=== PATIENT | male | born 1970 | race Caucasian/White ===

== ENCOUNTER 2024-02-11 13:29 | Inpatient (IN) | payer BC, MEDICAID ==
[~2024-02-11] VITALS: Ht 188 cm; Wt 111.1 kg
[2024-02-11 13:31] VITALS: O2SAT 98
[2024-02-11] MEDS: SODIUM CHLORIDE 0.9% 1,000 ML IV ONE (14:11)
[2024-02-11 16:16] LABS: CLARITY URINE CLEAR (CLEAR); COLOR URINE DARK YELLOW (YELLOW); GLUCOSE URINE NEGATIVE (NEGATIVE); KETONES URINE TRACE (NEGATIVE); LEUKOCYTE ESTERASE URINE NEGATIVE (NEGATIVE); NITRITE URINE NEGATIVE (NEGATIVE); OCCULT BLOOD URINE NEGATIVE (NEGATIVE); PROTEIN URINE TRACE (NEGATIVE); SPECIFIC GRAVITY URINE 1.033 (1.005-1.030)
[2024-02-11 16:30] LABS: *AMPHETAMINES SCREEN URINE NEGATIVE (NEGATIVE); *BARBITURATES SCREEN URINE NEGATIVE (NEGATIVE); *BENZODIAZEPINES SCREEN URINE NEGATIVE (NEGATIVE); *COCAINE SCREEN URINE NEGATIVE (NEGATIVE); CANNABINOID URINE SCREEN NEGATIVE (NEGATIVE); ECSTASY MDMA SCREEN URINE NEGATIVE (NEGATIVE); METHADONE URINE SCREEN NEGATIVE (NEGATIVE); OPIATES URINE SCREEN NEGATIVE (NEGATIVE); PHENCYCLIDINE URINE SCREEN NEGATIVE (NEGATIVE)
[2024-02-11 16:32] LABS: BASOPHILS % 0.6 % (0.0-2.0); EOSINOPHILS % 0.7 % (0.0-5.0); HEMATOCRIT. 46.4 % (42.0-52.0); HEMOGLOBIN. 15.6 g/dL (14.0-18.0); LYMPHOCYTES % 27.2 % (20.0-50.0); MEAN CORPUSCULAR HEMOGLOBIN 29.6 pg (28.0-32.0); MEAN CORPUSCULAR HGB CONC 33.7 g/dL (31.0-37.0); MEAN CORPUSCULAR VOLUME 87.7 fL (80.0-94.0); MEAN PLATELET VOLUME 8.5 fl (7.4-10.4); MONOCYTES % 8.3 % (2.0-8.0); NEUTROPHILS % 63.2 % (40.0-76.0); PLATELET 357 x1000/uL (130-400); RED BLOOD CELL COUNT 5.28 mill/uL (4.7-6.1); RED CELL DISTRIBUTION WIDTH 15.9 % (11.6-14.6); WHITE BLOOD COUNT 7.4 x1000/uL (4.5-11.0)
[2024-02-11 16:40] LABS: CHLORIDE 109 mEq/L (98-107); POTASSIUM 3.8 mEq/L (3.5-5.1); SODIUM 141 mEq/L (136-145)
[2024-02-11 16:41] LABS: CALCIUM 9.1 mg/dL (8.7-10.4); CARBON DIOXIDE 26 mEq/L (21-32)
[2024-02-11 16:42] LABS: INR 2.1; PROTHROMBIN TIME 22.6 sec (9.6-11.0)
[2024-02-11 16:46] LABS: CREATININE 0.9 mg/dL (0.6-1.3); GLUCOSE 86 mg/dL (70-105); UREA NITROGEN BLOOD 9 mg/dL (9-23)
[2024-02-11 16:47] LABS: ETHANOL BLOOD < 10 mg/dL (<10)
[2024-02-11 16:49] LABS: TROPONIN I HIGH SENSITIVITY < 4 ng/L (3.0-53)
[2024-02-11 16:52] LABS: THYROID STIMULATING HORMONE 2.31 uIU/mL (0.55-4.78)
[2024-02-11 16:53] LABS: RBC URINE NONE SEEN /hpf (0-2); SQUAMOUS EPITHELIAL CELL URINE RARE /lpf (RARE/1+); WBC URINE 0-2 /hpf (0-2)
[2024-02-11 16:54] LABS: BACTERIA URINE 1+
[2024-02-11] MEDS ORDERED: ASPIRIN 81MG TABLET PO SCH (19:30)
[2024-02-11] MEDS: ATORVASTATIN CALCIUM 40MG TABLET PO SCH (20:28)
[2024-02-11] MEDS: ASPIRIN 81MG TABLET PO SCH (20:30)
[2024-02-12 08:18] LABS: CHLORIDE 109 mEq/L (98-107); POTASSIUM 3.9 mEq/L (3.5-5.1); SODIUM 140 mEq/L (136-145)
[2024-02-12 08:19] LABS: CALCIUM 9.3 mg/dL (8.7-10.4); CARBON DIOXIDE 24 mEq/L (21-32)
[2024-02-12 08:24] LABS: CREATININE 0.8 mg/dL (0.6-1.3); GLUCOSE 80 mg/dL (70-105); UREA NITROGEN BLOOD 6 mg/dL (9-23)
[2024-02-12] MEDS ORDERED: CLONIDINE 0.1MG TABLET PO PRN (13:30)
[2024-02-12] MEDS ORDERED: IPRATROPIUM/ALBUTEROL 0.5-3(2.5)MG/3ML NEB HHN PRN (13:30)
[2024-02-12] MEDS ORDERED: ONDANSETRON HCL 4MG/2ML INJ IV PRN (13:30)
[2024-02-12 15:29] LABS: BASOPHILS % 0.8 % (0.0-2.0); EOSINOPHILS % 0.4 % (0.0-5.0); HEMATOCRIT. 47.5 % (42.0-52.0); MEAN CORPUSCULAR HEMOGLOBIN 29.6 pg (28.0-32.0); MEAN CORPUSCULAR HGB CONC 33.7 g/dL (31.0-37.0); MEAN CORPUSCULAR VOLUME 87.9 fL (80.0-94.0); MEAN PLATELET VOLUME 8.7 fl (7.4-10.4); MONOCYTES % 5.3 % (2.0-8.0); NEUTROPHILS % 70.5 % (40.0-76.0); PLATELET 359 x1000/uL (130-400); RED BLOOD CELL COUNT 5.41 mill/uL (4.7-6.1); RED CELL DISTRIBUTION WIDTH 15.2 % (11.6-14.6); WHITE BLOOD COUNT 7.6 x1000/uL (4.5-11.0)
[2024-02-12 15:36] LABS: D-DIMER < 0.19 mg/L FEU (<0.50); PROTHROMBIN TIME 20.9 sec (9.6-11.0)
[2024-02-12 15:41] LABS: CHLORIDE 107 mEq/L (98-107); POTASSIUM 3.6 mEq/L (3.5-5.1); SODIUM 138 mEq/L (136-145)
[2024-02-12 15:42] LABS: CALCIUM 9.1 mg/dL (8.7-10.4); CARBON DIOXIDE 24 mEq/L (21-32)
[2024-02-12 15:45] VITALS: BP 138/82; PULSE 76; PULSE 99; RESP 20; TEMP 36.89184; TEMP 36.9184; O2SAT 99
[2024-02-12 15:45] LABS: CREATINE KINASE MB FRACTION < 0.5 ng/mL (0.5-3.6)
[2024-02-12 15:47] LABS: AMMONIA 21 uMol/L (<32); CREATININE 0.9 mg/dL (0.6-1.3); GLUCOSE 140 mg/dL (70-105); TRIGLYCERIDE 99 mg/dL (0-150); UREA NITROGEN BLOOD 8 mg/dL (9-23)
[2024-02-12 15:48] LABS: LDL CHOLESTEROL 53 mg/dL (5-100)
[2024-02-12 15:49] LABS: ALANINE AMINOTRANSFERASE 21 IU/L (10-49); ALBUMIN 4.2 g/dL (3.2-4.8); ASPARTATE AMINOTRANSFERASE 16 IU/L (<34); BILIRUBIN DIRECT 0.3 mg/dL (<=3.0); CHOLESTEROL 94 mg/dL (<200); HDL CHOLESTEROL 28 mg/dL (>55); PHOSPHORUS 3.6 mg/dL (2.5-4.9); PROTEIN TOTAL 6.4 g/dL (6.0-8.3)
[2024-02-12 15:50] LABS: BILIRUBIN TOTAL 0.7 mg/dL (0.1-1.0); CREATINE KINASE 75 IU/L (46-171)
[2024-02-12 16:18] LABS: TROPONIN I HIGH SENSITIVITY < 4 ng/L (3.0-53)
[2024-02-12] MEDS ORDERED: METO-396 MT (18:13)
[2024-02-12] MEDS ORDERED: ATOR20TA65 MT (18:13)
[2024-02-12] MEDS ORDERED: DOCU-150 MT (18:13)
[2024-02-12] MEDS ORDERED: BACL-141 PO (18:13)
[2024-02-12] MEDS ORDERED: DANT50CA PO (18:18)
[2024-02-12] MEDS ORDERED: LEVE750T4 PO (18:18)
[2024-02-12] MEDS ORDERED: ESCI-7 PO (18:18)
[2024-02-12 20:00] VITALS: BP 120/87; PULSE 95; RESP 19; TEMP 36.61404; O2SAT 96
[2024-02-12] MEDS: LEVETIRACETAM 750 MG in SODIUM CHLORIDE 0.9% 100 ML IV SCH (20:46)
[2024-02-12] MEDS: LACOSAMIDE 100MG TABLET PO SCH (20:47)
[2024-02-12] MEDS: ACETAMINOPHEN 325MG TABLET PO PRN (20:58)
[2024-02-12] MEDS ORDERED: LEVETIRACETAM 1,000MG in NACL 100ML PREMIX IV SCH (21:00)
[2024-02-12 23:13] LABS: CREATINE KINASE MB FRACTION 0.6 ng/mL (0.5-3.6); TROPONIN I HIGH SENSITIVITY 6 ng/L (3.0-53)
[2024-02-12 23:14] LABS: CREATINE KINASE 79 IU/L (46-171)
[2024-02-13] VITALS: BP 119/77; PULSE 79; RESP 18; TEMP 36.72516; O2SAT 98
[2024-02-13 04:00] VITALS: BP 137/81; PULSE 74; RESP 18; TEMP 36.50292; O2SAT 95
[2024-02-13] MEDS: ACETAMINOPHEN 325MG TABLET PO PRN (05:36)
[2024-02-13 07:16] LABS: CARBON DIOXIDE 25 mEq/L (21-32); CHLORIDE 106 mEq/L (98-107); POTASSIUM 3.5 mEq/L (3.5-5.1); SODIUM 139 mEq/L (136-145)
[2024-02-13 07:18] LABS: CALCIUM 9.3 mg/dL (8.7-10.4)
[2024-02-13 07:22] LABS: CREATININE 0.8 mg/dL (0.6-1.3); GLUCOSE 107 mg/dL (70-105); UREA NITROGEN BLOOD 8 mg/dL (9-23)
[2024-02-13 07:46] LABS: BASOPHILS % 0.5 % (0.0-2.0); EOSINOPHILS % 0.6 % (0.0-5.0); HEMATOCRIT. 47.8 % (42.0-52.0); HEMOGLOBIN. 15.9 g/dL (14.0-18.0); LYMPHOCYTES % 26.9 % (20.0-50.0); MEAN CORPUSCULAR HEMOGLOBIN 29.2 pg (28.0-32.0); MEAN CORPUSCULAR HGB CONC 33.3 g/dL (31.0-37.0); MEAN CORPUSCULAR VOLUME 87.9 fL (80.0-94.0); MEAN PLATELET VOLUME 8.6 fl (7.4-10.4); MONOCYTES % 7.8 % (2.0-8.0); NEUTROPHILS % 64.2 % (40.0-76.0); PLATELET 351 x1000/uL (130-400); RED BLOOD CELL COUNT 5.44 mill/uL (4.7-6.1); RED CELL DISTRIBUTION WIDTH 15.4 % (11.6-14.6); WHITE BLOOD COUNT 6.3 x1000/uL (4.5-11.0)
[2024-02-13 08:00] VITALS: BP 133/85; PULSE 79; RESP 20; TEMP 36.44736; O2SAT 98
[2024-02-13 12:00] VITALS: BP 122/95; PULSE 81; RESP 20; TEMP 36.50292; O2SAT 97
[2024-02-13 16:00] VITALS: BP 139/79; PULSE 88; RESP 2; TEMP 36.61404; O2SAT 100
[2024-02-13 20:00] VITALS: BP 132/80; PULSE 82; RESP 19; TEMP 36.6696; O2SAT 98
[2024-02-14] VITALS: BP 112/84; PULSE 76; RESP 18; TEMP 36.72516; O2SAT 99
[2024-02-14 04:00] VITALS: BP 116/93; PULSE 75; RESP 19; TEMP 36.61404; O2SAT 100
[2024-02-14 06:39] LABS: BASOPHILS % 0.6 % (0.0-2.0); EOSINOPHILS % 0.8 % (0.0-5.0); HEMATOCRIT. 47.8 % (42.0-52.0); LYMPHOCYTES % 27.2 % (20.0-50.0); MEAN CORPUSCULAR HEMOGLOBIN 29.5 pg (28.0-32.0); MEAN CORPUSCULAR HGB CONC 33.4 g/dL (31.0-37.0); MEAN CORPUSCULAR VOLUME 88.3 fL (80.0-94.0); MEAN PLATELET VOLUME 8.6 fl (7.4-10.4); MONOCYTES % 8.2 % (2.0-8.0); NEUTROPHILS % 63.2 % (40.0-76.0); PLATELET 349 x1000/uL (130-400); RED BLOOD CELL COUNT 5.41 mill/uL (4.7-6.1); RED CELL DISTRIBUTION WIDTH 15.9 % (11.6-14.6); WHITE BLOOD COUNT 6.2 x1000/uL (4.5-11.0)
[2024-02-14 06:48] LABS: CARBON DIOXIDE 24 mEq/L (21-32); CHLORIDE 106 mEq/L (98-107); POTASSIUM 3.5 mEq/L (3.5-5.1); SODIUM 139 mEq/L (136-145)
[2024-02-14 06:50] LABS: CALCIUM 9.2 mg/dL (8.7-10.4)
[2024-02-14 06:54] LABS: GLUCOSE 88 mg/dL (70-105); UREA NITROGEN BLOOD 7 mg/dL (9-23)
[2024-02-14 08:00] VITALS: BP 137/89; PULSE 81; RESP 20; TEMP 36.55848; O2SAT 98
[2024-02-14 12:00] VITALS: BP 125/86; PULSE 74; RESP 19; TEMP 36.33624; O2SAT 98
[2024-02-14 16:00] VITALS: BP 116/70; PULSE 90; RESP 18; RESP 20; TEMP 36.6696; O2SAT 97; O2SAT 98
[2024-02-14] MEDS ORDERED: WARF2.5T83 PO (18:06)
[2024-02-14] MEDS ORDERED: WARF-53 PO (18:06)
[2024-02-14 20:00] VITALS: BP 122/68; PULSE 86; RESP 18; TEMP 36.78072; O2SAT 98
[2024-02-15] VITALS: BP 117/67; PULSE 89; RESP 18; TEMP 36.72516; O2SAT 97
[2024-02-15 04:00] VITALS: BP 127/66; PULSE 86; RESP 19; TEMP 36.9474; O2SAT 97
[2024-02-15 06:51] LABS: CARBON DIOXIDE 23 mEq/L (21-32); CHLORIDE 107 mEq/L (98-107); POTASSIUM 3.6 mEq/L (3.5-5.1); SODIUM 139 mEq/L (136-145)
[2024-02-15 06:52] LABS: CALCIUM 9.2 mg/dL (8.7-10.4)
[2024-02-15 06:57] LABS: CREATININE 0.9 mg/dL (0.6-1.3); GLUCOSE 91 mg/dL (70-105); UREA NITROGEN BLOOD 9 mg/dL (9-23)
[2024-02-15 07:06] LABS: BASOPHILS % 0.6 % (0.0-2.0); EOSINOPHILS % 1.1 % (0.0-5.0); HEMATOCRIT. 47.2 % (42.0-52.0); HEMOGLOBIN. 16.1 g/dL (14.0-18.0); LYMPHOCYTES % 28.8 % (20.0-50.0); MEAN CORPUSCULAR HGB CONC 34.2 g/dL (31.0-37.0); MEAN CORPUSCULAR VOLUME 87.8 fL (80.0-94.0); MEAN PLATELET VOLUME 8.5 fl (7.4-10.4); MONOCYTES % 7.6 % (2.0-8.0); NEUTROPHILS % 61.9 % (40.0-76.0); PLATELET 349 x1000/uL (130-400); RED BLOOD CELL COUNT 5.38 mill/uL (4.7-6.1); RED CELL DISTRIBUTION WIDTH 15.4 % (11.6-14.6); WHITE BLOOD COUNT 6.5 x1000/uL (4.5-11.0)
[2024-02-15 08:00] VITALS: BP 126/80; PULSE 69; RESP 20; TEMP 35.5584; O2SAT 98
[2024-02-15 12:00] VITALS: BP 127/82; PULSE 66; RESP 20; TEMP 36.9474; O2SAT 96
[2024-02-15] MEDS ORDERED: LACO100T4 PO (14:44)
[2024-02-15] MEDS ORDERED: DANT25CA PO (14:44)
[2024-02-15] MEDS ORDERED: WARF2.5T83 PO (14:47)
[2024-02-15] MEDS: DOCUSATE SODIUM 100MG CAPSULE PO PRN (14:58)
[2024-02-15] MEDS: LACTULOSE 20G/30ML UDC PO NR (14:59)
[2024-02-15 16:00] VITALS: BP 138/87; PULSE 77; RESP 18; TEMP 36.44736; O2SAT 96
[2024-02-15] MEDS: ENOXAPARIN 30MG/0.3ML SYR SUBCUT SCH (17:48)
[2024-02-15 20:00] VITALS: BP 102/68; PULSE 84; RESP 18; TEMP 36.50292; O2SAT 95
[2024-02-16 00:01] VITALS: BP 129/89; PULSE 91; RESP 20; TEMP 36.3918; O2SAT 98
[2024-02-16 04:00] VITALS: BP 125/99; PULSE 68; RESP 18; TEMP 36.55848; O2SAT 99
[2024-02-16 06:56] LABS: BASOPHILS % 0.5 % (0.0-2.0); EOSINOPHILS % 1.3 % (0.0-5.0); HEMATOCRIT. 46.7 % (42.0-52.0); HEMOGLOBIN. 15.8 g/dL (14.0-18.0); LYMPHOCYTES % 27.2 % (20.0-50.0); MEAN CORPUSCULAR HEMOGLOBIN 29.9 pg (28.0-32.0); MEAN CORPUSCULAR HGB CONC 33.9 g/dL (31.0-37.0); MEAN CORPUSCULAR VOLUME 88.1 fL (80.0-94.0); MEAN PLATELET VOLUME 8.7 fl (7.4-10.4); MONOCYTES % 8.2 % (2.0-8.0); NEUTROPHILS % 62.8 % (40.0-76.0); PLATELET 328 x1000/uL (130-400); RED CELL DISTRIBUTION WIDTH 15.6 % (11.6-14.6); WHITE BLOOD COUNT 6.9 x1000/uL (4.5-11.0)
[2024-02-16 06:57] LABS: CARBON DIOXIDE 25 mEq/L (21-32); CHLORIDE 107 mEq/L (98-107); POTASSIUM 3.4 mEq/L (3.5-5.1); SODIUM 140 mEq/L (136-145)
[2024-02-16 06:58] LABS: CALCIUM 9.5 mg/dL (8.7-10.4); INR 1.2; PROTHROMBIN TIME 12.7 sec (9.6-11.0)
[2024-02-16 07:03] LABS: CREATININE 0.8 mg/dL (0.6-1.3); GLUCOSE 80 mg/dL (70-105); UREA NITROGEN BLOOD 9 mg/dL (9-23)
[2024-02-16 08:00] VITALS: BP 111/85; PULSE 73; RESP 18; TEMP 36.33624; O2SAT 97
[2024-02-16] MEDS: POTASSIUM CHLORIDE 20MEQ TABLET SR PO NR (10:00)
[2024-02-16 12:00] VITALS: BP 112/74; PULSE 72; RESP 18; TEMP 36.78072; O2SAT 97
[2024-02-16 16:00] VITALS: BP 108/76; PULSE 65; RESP 18; TEMP 34.78056; O2SAT 97
[2024-02-16 20:00] VITALS: BP 113/76; PULSE 62; PULSE 70; RESP 18; RESP 20; TEMP 36.50292; TEMP 36.55848; O2SAT 95; O2SAT 96; O2SAT 97
[2024-02-17] VITALS: BP 121/75; PULSE 78; RESP 17; TEMP 36.50292; O2SAT 99
[2024-02-17 04:00] VITALS: BP 130/88; PULSE 63; RESP 20; TEMP 36.50292; O2SAT 96
[2024-02-17 06:22] LABS: CARBON DIOXIDE 28 mEq/L (21-32); CHLORIDE 106 mEq/L (98-107); POTASSIUM 3.5 mEq/L (3.5-5.1); SODIUM 140 mEq/L (136-145)
[2024-02-17 06:23] LABS: CALCIUM 9.3 mg/dL (8.7-10.4)
[2024-02-17 06:25] LABS: INR 1.1; PROTHROMBIN TIME 12.3 sec (9.6-11.0)
[2024-02-17 06:27] LABS: CREATININE 0.9 mg/dL (0.6-1.3)
[2024-02-17 06:28] LABS: GLUCOSE 82 mg/dL (70-105); UREA NITROGEN BLOOD 8 mg/dL (9-23)
[2024-02-17 06:33] LABS: BASOPHILS % 0.4 % (0.0-2.0); EOSINOPHILS % 1.5 % (0.0-5.0); HEMATOCRIT. 45.3 % (42.0-52.0); HEMOGLOBIN. 15.6 g/dL (14.0-18.0); LYMPHOCYTES % 32.6 % (20.0-50.0); MEAN CORPUSCULAR HEMOGLOBIN 30.3 pg (28.0-32.0); MEAN CORPUSCULAR HGB CONC 34.4 g/dL (31.0-37.0); MEAN CORPUSCULAR VOLUME 88.1 fL (80.0-94.0); MEAN PLATELET VOLUME 8.5 fl (7.4-10.4); NEUTROPHILS % 57.5 % (40.0-76.0); PLATELET 315 x1000/uL (130-400); RED BLOOD CELL COUNT 5.15 mill/uL (4.7-6.1); RED CELL DISTRIBUTION WIDTH 15.9 % (11.6-14.6); WHITE BLOOD COUNT 5.9 x1000/uL (4.5-11.0)
[2024-02-17 07:26] VITALS: BP 130/85; PULSE 63; RESP 18; TEMP 36.50292; O2SAT 96
== END 2024-02-17 11:33 | disposition left against medical advice (07) | DRG 72 ==
LOC: ER 13:40 → 5WST 19:55 → 8WST 02-12 15:42
PROVIDERS: ADMIT Internal Medicine; ATTEND Internal Medicine
PROC: 4A10X4Z Monitoring of Central Nervous Electrical Activity, External Approach (ICD-10-PCS; principal; 2024-02-16)
DX: G93.40 Encephalopathy, unspecified (principal); E11.9 Type 2 diabetes mellitus without complications; G40.909 Epilepsy, unspecified, not intractable, without status epilepticus; I10 Essential (primary) hypertension; Z86.73 Personal history of transient ischemic attack (TIA), and cerebral infarction without residual deficits
CPT/HCPCS: 36415; 70551; 71045; 78580; 80048; 80061; 80076; 80305; 80320; 80339; 81003; 82140; 82550; 82553; 82962; 83036; 83605; 83735; 83880; 84100; 84145; 84443; 84484; 85025; 85379; 87077; 92523; 92610; 93005; 93880; 93970; 94640; 95816; 97162; 97166; 97530; 99285; J1650; J1953; J7030; J7050; G0480